=== PATIENT | female | born 1990 | race Two or more races ===

== ENCOUNTER 2016-10-11 20:17 | Emergency (ER) | payer SELFPAY ==
[~2016-10-11] VITALS: Ht 175.3 cm; Wt 59.0 kg
[2016-10-11] MEDS ORDERED: IBUPROFEN600 MG ORAL (21:23)
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
[2016-10-12 03:07] VITALS: BP 137/92
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
== END 2016-10-11 22:25 | disposition home or self-care (01) ==
LOC: EMR 21:12
DX: S20.211A Contusion of right front wall of thorax, initial encounter (principal); V43.52XA Car driver injured in collision with other type car in traffic accident, initial encounter; Y92.410 Unspecified street and highway as the place of occurrence of the external cause; Y99.8 Other external cause status
CPT/HCPCS: 99283